=== PATIENT | female | born 1940 | race Caucasian/White ===

== ENCOUNTER → 2018-12-30 12:27 | Outpatient (CLI) | payer MEDICARE, OTHER, SELFPAY ==
--- NOTE | 2018-12-30 13:40 | NEURO ---
NCS and/or EMG Patient Report Ordering Doctor: Nolan Baldwin DATE OF SERVICE: 12/30/18 Adrianna Jensen is a 78-year-old female presents for electrodiagnostic testing of the left upper limb. She reports numbness and tingling in the left hand. Elective diagnostic findings: Left median motor nerve demonstrates prolonged distal latency with reduced amplitude and conduction velocity. Left ulnar motor response is within normal limits. Prolonged left median F wave. Prolonged left median sensory latency. Prolonged left ulnar sensory latency is noted. Needle EMG testing was performed in the left upper limb. All muscles tested showed no evidence of denervation with normal motor unit action potentials. Electrodiagnostic impression: This is an abnormal study in the left upper limb. 1. Electrodiagnostic findings consistent with left-sided median neuropathy. This is consistent with a moderate to advanced left carpal tunnel syndrome 2. 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 If there are any further questions, please do not hesitate to contact me.
== END ==
PROVIDERS: Family Provider Family Medicine; PCP Family Medicine; Referring Provider Family Medicine; Visit Provider Family Medicine
DX: R20.0 Anesthesia of skin (principal)
CPT/HCPCS: 95886; 95909

== ENCOUNTER → 2019-09-09 13:03 | Outpatient (CLI) | payer MEDICARE, OTHER, SELFPAY ==
--- NOTE | 2019-09-09 18:31 | NEURO ---
NCS and/or EMG Patient Report HPI: Patient a 79 year-old female who presented with the numbness, tingling and burning in the right hand, worse at night. Numbness is constant especially in the third finger. Patient had a left carpal tunnel syndrome surgery in the summer of 2019 patient. Patient was having similar symptoms in the left hand which has improved significantly after the surgery. Patient not have any history of diabetes. Physical Exam: Tenderness noted at anterior right wrist area. Tinel's sign positive at right area. Mild hypothenar and thenar muscles weakness noted in the right hand. Decreased sensation to light touch noted in the right hand fingers. Findings: 1. The right median sensory nerve responses not recordable from digit second. 2. There is prolongation of distal latency of the right median sensory nerve response from digit third. 3. There is prolongation of the distal latency of the right ulnar nerve response. 4. There is a prolongation of distal latency of the right median motor nerve response. 5. Normal right ulnar motor nerve conduction studies. 5. Normal needle examination of the right upper extremity. Impression: 1. 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 2. Findings are also consistent with the right ulnar sensory neuropathy. Recommendation: 1. Patient recommended to have a surgical release of the right carpal tunnel syndrome. 2. Patient recommended to wear right hand and elbow splints as much as possible. 3. Patient recommended to avoid repetitive right hand movement and sleeping or leaning on right elbow.
== END ==
PROVIDERS: Family Provider Family Medicine; PCP Family Medicine; Referring Provider Orthopaedic Surgery; Visit Provider Orthopaedic Surgery
DX: R20.2 Paresthesia of skin (principal)
CPT/HCPCS: 95886; 95909